=== PATIENT | female | born 1945 | race Caucasian/White ===

== ENCOUNTER 2018-06-11 14:30 | Inpatient (IN) | payer OTHER ==
[~2018-06-11] VITALS: Ht 157.5 cm; Wt 83.9 kg
[2018-06-16] MEDS ORDERED: GABAPENTIN100 MG PO (16:16)
[2018-06-16] MEDS ORDERED: ENALAPRIL MALEA10 MG PO (16:16)
[2018-06-16] MEDS ORDERED: ATORVASTATIN CA80 MG PO (16:17)
[2018-06-16] MEDS ORDERED: OXYBUTYNIN PO (16:17)
[2018-06-16] MEDS ORDERED: ASA81 MG PO (16:18)
[2018-06-16] MEDS ORDERED: OMEPRAZOLE20 MG PO (16:18)
[2018-06-23] MEDS ORDERED: GABAPENTIN800 MG PO (11:17)
[2018-06-23] MEDS ORDERED: DOCUSATE SODIU100 MG PO (11:17)
[2018-06-23] MEDS ORDERED: CLONAZEPAM1 MG PO (11:18)
[2018-06-23] MEDS ORDERED: PERCOCET 5-3251 EACH PO (11:18)
[2018-06-23] MEDS ORDERED: AMOX-CLAV 875-1 EACH PO (11:18)
== END 2018-06-23 15:07 | disposition home or self-care (01) | DRG 455 ==
LOC: O/R 06-22 05:48 → PED 06-22 05:48 → SURH 06-22 14:15 → PED 06-22 16:54
PROVIDERS: Orthopaedic Surgery Orthopaedic Surgery of the Spine
PROC: 0SG1071 Fusion of 2 or more Lumbar Vertebral Joints with Autologous Tissue Substitute, Posterior Approach, Posterior Column, Open Approach (ICD-10-PCS; 2018-06-22)
PROC: 0ST20ZZ Resection of Lumbar Vertebral Disc, Open Approach (ICD-10-PCS; 2018-06-22)
PROC: 0SG10AJ Fusion of 2 or more Lumbar Vertebral Joints with Interbody Fusion Device, Posterior Approach, Anterior Column, Open Approach (ICD-10-PCS; 2018-06-22)
PROC: 07DS3ZZ Extraction of Vertebral Bone Marrow, Percutaneous Approach (ICD-10-PCS; 2018-06-22)
PROC: 0SG10A0 Fusion of 2 or more Lumbar Vertebral Joints with Interbody Fusion Device, Anterior Approach, Anterior Column, Open Approach (ICD-10-PCS; principal; 2018-06-22 16:45)
DX: M47.26 Other spondylosis with radiculopathy, lumbar region (principal); M48.061 Spinal stenosis, lumbar region without neurogenic claudication; M43.16 Spondylolisthesis, lumbar region; M51.16 Intervertebral disc disorders with radiculopathy, lumbar region; I10 Essential (primary) hypertension